=== PATIENT | male | born 1980 ===

== ENCOUNTER 2018-07-01 00:30 | Outpatient (CLI) | payer OTHER ==
[2018-07-01 07:01] LABS: eGFR (Non-African) > 60
[2018-07-01 07:02] LABS: BASOPHILS % 0.8 (0.0-1.5); EOSINOPHILS % 3.8 % (0.0-6.8); MEAN CORPUSCULAR HEMOGLOBIN 31.3 pg (28.0-34.0); MONOCYTES % 3.6 % (0.0-11.0); NEUTROPHILS # 5.2 # k/uL (1.4-7.7)
== END 2018-07-01 00:32 ==
LOC: LAB 00:30
PROVIDERS: ATTEND Family Medicine
DX: R55 Syncope and collapse (principal)
CPT/HCPCS: 36415; 80053; 85025